=== PATIENT | female | born 1990 | race Caucasian/White ===

== ENCOUNTER 2017-09-19 10:55 | Outpatient (CLI) | payer OTHER ==
[2017-09-19] VITALS (10 sets, daily range): BP systolic 112–129; BP diastolic 55–68
[~2017-09-19] VITALS: Ht 165.1 cm; Wt 67.6 kg
--- NOTE | 2017-09-19 12:15 | History & Physical ---
History and Physical Date Seen by Provider: Sep 19, 2017 Time Seen by Provider: 12:11 This patient is a 26-year-old white female with a due date of December 05, 2017 putting her now at around 29 weeks gestation. She fell abruptly about 7 a.m. this morning landing on her buttocks and causing a mild split resulting in mild groin pain and noticeable sacral pain. She denies rupture membranes or bleeding. She started having some occasional contractions. She does feel baby moving. Allergies are none Medications are Pepcid and vitamins Medical social and surgical histories are per the antepartum record HEENT exam is normal Neck is supple no lymphadenopathy no thyromegaly Abdomen is gravid soft nontender nondistended Extreme show no clubbing or cyanosis. There is no Homans sign. Pelvic exam is deferred monitor shows a normal heart rate pattern with frequent accelerations and no decelerations. There are no uterine contractions and no or very minimal uterine irritability Assessment and plan patient concern for labor after a fall this morning we will monitor for 4 hours. If there are no significant contractions and we will reassure the patient and discharge her home. She does begin to contract and concern for placental abruption and labor or worse would arise and we would manage appropriately. labor Allergies and Home Medications Patient Home Medication List Home Medication List Reviewed: Yes SHERWIN TIJERINA MD Sep 19, 2017 12:15 pm
--- NOTE | 2017-09-19 12:17 | Discharge Instructions ---
Discharge Instructions Discharge Medications New, Converted or Re-Newed RX: Other Patient Instructions Patient Instructions: As directed Return to The Hospital For: As directed Activity & Diet Discharge Diet: No Restrictions Activity as Tolerated: Yes Orders-Post D/C & Referrals Return to clinic as scheduled for OB follow-up Return to clinic promptly for any signs symptoms or indications of rupture membranes or labor Continue her own home medications SHERWIN TIJERINA MD Sep 19, 2017 12:17 pm
[2017-09-19 12:35] LABS: BILIRUBIN,URINE NEGATIVE (NEGATIVE); CLARITY,URINE CLEAR; COLOR,URINE YELLOW; GLUCOSE, URINE (UA) 3+ (NEGATIVE); KETONES,URINE NEGATIVE (NEGATIVE); LEUKOCYTE ESTERASE ,URINE 2+ (NEGATIVE); NITRITE,URINE NEGATIVE (NEGATIVE); PH,URINE 6.5 (5-9); PROTEIN,URINE 1+ (NEGATIVE); UROBILINOGEN,URINE NORMAL (NORMAL)
[2017-09-19 12:53] LABS: BACTERIA,URINE LARGE /HPF; SQUAMOUS EPITHELIAL CELL,UR 25-50 /HPF
== END 2017-09-19 16:30 | disposition home or self-care (01) ==
LOC: WSo 10:55 → LDRP 10:55 → WSo 16:30
PROVIDERS: ATTEND Obstetrics & Gynecology
DX: Z91.81 History of falling (principal); Z3A.27 27 weeks gestation of pregnancy
CPT/HCPCS: 81000; 87088; 99213

== ENCOUNTER 2017-11-28 09:55 | Inpatient (IN) | payer OTHER ==
[~2017-11-28] VITALS: Ht 152.4 cm; Wt 69.4 kg
[2017-11-28] VITALS (61 sets, daily range): BP systolic 92–120; BP diastolic 51–69
[~2017-11-28 09:55] MED LIST: LACTATED RINGERS 1,000 ML IV ONE
[2017-11-28] MEDS ORDERED: SUFENTA 0.6MCG/ML BUPIVA 0.125 100 ML ONE (10:41)
[2017-11-28] MEDS ORDERED: D5 LR IV SOLUTION 1,000 ML IV ONE (10:52)
[2017-11-28] MEDS: D5 LR IV SOLUTION 1,000 ML IV SCH ×2 (10:56→18:43)
[2017-11-28 10:57] LABS: BASOPHILS % (AUTO) 0 % (0-10); EOSINOPHILS # (AUTO) 0.1 10^3/uL (0.0-0.3); EOSINOPHILS % (AUTO) 1 % (0-10); HEMATOCRIT 33 % (35-52); HEMOGLOBIN 10.4 G/DL (11.5-16.0); LYMPHOCYTES # (AUTO) 1.6 X 10^3 (1.0-4.0); LYMPHOCYTES % (AUTO) 18 % (12-44); MEAN CORPUSCULAR HEMOGLOBIN 24 PG (25-34); MEAN CORPUSCULAR HGB CONC 31 G/DL (32-36); MEAN CORPUSCULAR VOLUME 76 FL (80-99); MEAN PLATELET VOLUME 9.8 FL (7.4-10.4); MONOCYTES # (AUTO) 0.6 X 10^3 (0.0-1.0); MONOCYTES % (AUTO) 7 % (0-12); NEUTROPHILS # (AUTO) 6.8 X 10^3 (1.8-7.8); NEUTROPHILS % (AUTO) 75 % (42-75); PLATELET COUNT 285 10^3/uL (130-400); RED BLOOD COUNT 4.36 10^6/uL (4.35-5.85); RED CELL DISTRIBUTION WIDTH 16.3 % (10.0-14.5); WHITE BLOOD COUNT 9.1 10^3/uL (4.3-11.0)
[2017-11-28] MEDS ORDERED: BUPIVACAINE 0.25% 30 ML (SENSORCAINE) VIAL ONE (11:18)
[2017-11-28] MEDS ORDERED: fentaNYL INJECTION 100 MCG/2 ML AMP ONE (11:19)
[2017-11-28 11:21] LABS: BILIRUBIN,URINE NEGATIVE (NEGATIVE); CLARITY,URINE CLEAR; COLOR,URINE YELLOW; GLUCOSE, URINE (UA) NEGATIVE (NEGATIVE); KETONES,URINE NEGATIVE (NEGATIVE); LEUKOCYTE ESTERASE ,URINE 1+ (NEGATIVE); NITRITE,URINE NEGATIVE (NEGATIVE); PH,URINE 7 (5-9); PROTEIN,URINE 2+ (NEGATIVE); UROBILINOGEN,URINE 4 MG/DL (NORMAL)
[2017-11-28 11:33] LABS: BACTERIA,URINE NEGATIVE /HPF; SQUAMOUS EPITHELIAL CELL,UR 0-2 /HPF; WBC,URINE RARE /HPF
[2017-11-28] MEDS: EPIDURAL (SUFENTA 0.6MCG/ML BUPIVA 0.125%) 100 ML BAG EPI SCH ×2 (11:48→20:19)
[2017-11-28] MEDS ORDERED: LACTATED RINGERS 1,000 ML IV ONE (11:53)
[2017-11-28] MEDS ORDERED: NALOXONE 0.4 MG/ML 1 ML (NARCAN) VIAL IV PRN (12:00)
[2017-11-28] MEDS ORDERED: diphenhydrAMINE 50 MG/ML INJ (BENADRYL) IV PRN (12:00)
[2017-11-28] MEDS ORDERED: CATHETER FLUSH 10 ML SYR IV PRN (12:00)
[2017-11-28] MEDS ORDERED: OXYTOCIN/NORMAL SALINE 500 ML IV SCH ×2 (12:04→15:07)
[2017-11-28] MEDS ORDERED: OXYTOCIN/NORMAL SALINE 500 ML IV ONE (12:11)
[2017-11-28] MEDS ORDERED: PREN1TAB86 PO (13:21)
--- NOTE | 2017-11-28 15:07 | History & Physical ---
History and Physical Date Seen by Provider: Nov 28, 2017 Time Seen by Provider: 15:05 This patient is a 26-year-old white female with a due date of 1817 putting her at 39 weeks gestation. She requests induction of labor secondary to the aches and pains of . She was admitted with a favorable cervix and was GBS negative culture for labor induction. Patient denies ruptured membranes or bleeding. Allergies are none Medications are vitamins and Pepcid Medical social surgical obstetric family histories are present record HEENT exam is normal Neck supple no lymphadenopathy no thyromegaly Abdomen gravid soft nontender nondistended Extremities show no clubbing cyanosis. There is no Homans sign. Pelvic pelvic exam unless checking clinic shows cervix 1-2 cm dilated greater than 50 percent effaced 0 station soft and midplane given a Martin score of 8 Assessment and plan term at 39 weeks gestation with a favorable cervix admitted for induction of labor 39 week admitted for elective induction Allergies and Home Medications Allergies Coded Allergies: No Known Drug Allergies (Unverified , 09/19/17) Home Medications Vit W-Ca,Fe,FA(<1 mg) 1 Each Tablet, 1 EACH PO DAILY, (Reported) Patient Home Medication List Home Medication List Reviewed: Yes SHERWIN TIJERINA MD Nov 28, 2017 3:07 pm
[2017-11-28] MEDS ORDERED: TETANUS,DIPTH,PERTUSS P/F (BOOSTRIX) 0.5 ML VIAL IM ONE (15:15)
[2017-11-28] MEDS ORDERED: KETOROLAC 30 MG/ML VIAL IV SCH (15:15)
[2017-11-28] MEDS: ONDANSETRON 4 MG/2 ML (SDV) Z0FRAN IV PRN ×2 (17:15→20:03)
[2017-11-28] MEDS ORDERED: LIDOCAINE/EPI 2% 1:200,00 (XYLOCAINE) 10 ML VIAL ONE (23:22)
[2017-11-28] MEDS ORDERED: IBUP-1780 PO (23:37)
[2017-11-28] MEDS ORDERED: OXYC-471 PO (23:37)
[2017-11-28] MEDS ORDERED: DOCU100C37 PO (23:37)
--- NOTE | 2017-11-28 23:38 | Discharge Instructions ---
Discharge Instructions Discharge Medications New, Converted or Re-Newed RX: RX on Chart Patient Instructions Patient Instructions: As directed Return to The Hospital For: As directed Activity & Diet Discharge Diet: No Restrictions Activity as Tolerated: No Orders-Post D/C & Referrals Follow Up Appt: Call to make follow up appt. for patient in 4 weeks. Activity Per routine post vaginal delivery instructions. Diet as tolerated Patient may shower or tub bathe as desired. SHERWIN TIJERINA MD Nov 28, 2017 23:38
[2017-11-29] VITALS (14 sets, daily range): BP systolic 90–120; BP diastolic 49–78
--- NOTE | 2017-11-29 04:08 | OPERATIVE REPORT ---
DATE OF SERVICE: 11/29/2017 REPORT TITLE: Delivery note The patient delivered by term spontaneous vaginal delivery a viable female with Apgars of 8 and 9 at 1 and 5 minutes respectively, weight 7 pounds and 4 ounces and arterial cord blood gas of 7.18, and a time of 00:01. The patient delivered over an intact perineum under epidural analgesia, augmented with local lidocaine in the perineal body. There was a double nuchal cord that was easily released, the delivery was then completed. The infant was bulb suctioned on delivery of the head and again on completion of delivery. The umbilical cord was doubly clamped, the father cut the cord, the baby was passed to mom's abdomen. The cervix, vagina, rectum and perineum were examined and found intact. Sponge and needle counts were correct. Estimated blood loss was around 100 mL. The patient tolerated the delivery well and remained in the LDR for recovery. The baby remained with the mom. Job ID: [id number] DocumentID: [id number] Dictated Date: 11/29/2017 00:14:35 Taste Tester Date: 11/29/2017 04:08:03 Dictated By: SHERWIN TIJERINA MD MTDD
[2017-11-29] MEDS ORDERED: IBUPROFEN 800 MG (MOTRIN) TAB PO ONE (06:41)
[2017-11-29] MEDS: IBUPROFEN 800 MG (MOTRIN) TAB PO SCH ×3 (06:49→18:06)
[2017-11-29] MEDS: CATHETER FLUSH 10 ML SYR IV SCH ×2 (06:49→06:50)
[2017-11-29] MEDS: DOCUSATE SODIUM 100 MG (COLACE) CAP PO SCH ×3 (06:49→21:16)
--- NOTE | 2017-11-29 07:39 | Progress Note-Standard ---
Standard Progress Note Progress Notes/Assess & Plan Date Seen by Provider: Nov 29, 2017 Time Seen by Provider: 07:38 Progress/Assessment & Plan This patient is without complaint. She is ambulating, voiding, tolerating by mouth, has good pain control. Patient denies chest pain, denies shortness of breath, denies nausea vomiting, and denies headache. Vital Signs Date Time Temp Pulse Resp B/P (MAP) Pulse Ox O2 Delivery O2 Flow Rate FiO2 11/29/17 04:50 99.0 70 18 98/64 (75) 97 Room Air 11/29/17 02:30 98.7 82 18 98/61 (73) Room Air 11/29/17 02:00 98.9 75 18 104/57 (73) Room Air 11/29/17 01:30 82 18 103/49 (67) Room Air 11/29/17 01:15 99.3 69 18 98/50 (66) Room Air 11/29/17 01:00 67 18 90/51 (64) Room Air 11/29/17 00:45 69 18 106/58 (74) Room Air 11/29/17 00:30 98.0 72 18 111/54 (73) Room Air 11/29/17 00:15 97.8 93 18 119/66 (83) Room Air 11/29/17 00:00 136 18 120/78 (92) Room Air 11/28/17 23:45 69 18 111/65 (80) 100 Room Air 11/28/17 23:30 97.0 64 18 105/66 (79) 100 Room Air 11/28/17 23:15 55 18 106/59 (75) 100 Room Air 11/28/17 22:45 60 18 105/58 (74) 94 Room Air 11/28/17 22:30 64 18 109/54 (72) 95 Room Air 11/28/17 22:15 61 18 101/57 (72) 94 Room Air 11/28/17 22:00 97.8 70 18 118/69 (85) 96 Room Air 11/28/17 21:45 64 18 104/57 (73) 94 Room Air 11/28/17 21:30 62 18 102/59 (73) 94 Room Air 11/28/17 21:15 61 18 101/55 (70) 96 Room Air 11/28/17 21:00 62 18 105/57 (73) 95 Room Air 11/28/17 20:45 97.9 65 18 108/53 (71) 96 Room Air 11/28/17 20:30 63 18 102/58 (73) 97 Room Air 11/28/17 20:15 65 18 107/60 (76) 97 Room Air 11/28/17 20:00 65 18 110/54 (72) 98 Room Air 11/28/17 19:45 63 18 102/54 (70) 97 Room Air 11/28/17 19:30 63 18 109/64 (79) 98 Room Air 11/28/17 19:15 97.5 63 18 101/59 (73) 97 Room Air 11/28/17 19:00 61 18 108/63 (78) 98 Room Air 11/28/17 18:45 66 18 107/63 (78) 98 Room Air 11/28/17 18:30 64 18 102/57 (72) 98 Room Air 11/28/17 18:15 68 18 104/59 (74) 100 Room Air 11/28/17 18:00 98.4 53 18 92/51 (65) 99 Room Air 11/28/17 17:45 57 18 98/57 (71) 99 Room Air 11/28/17 17:30 57 18 104/58 (73) 97 Room Air 11/28/17 17:15 69 18 104/56 (72) 98 Room Air 11/28/17 17:00 66 18 103/56 (72) 98 Room Air 11/28/17 16:45 65 18 92/55 (67) 96 Room Air 11/28/17 16:30 58 18 96/52 (67) 98 Room Air 11/28/17 16:15 58 18 99/54 (69) 98 Room Air 11/28/17 16:00 98.3 62 18 97/54 (68) 97 Room Air 11/28/17 15:45 69 18 100/56 (71) 98 Room Air 11/28/17 15:30 74 18 104/54 (71) 98 Room Air 11/28/17 15:15 60 18 98/59 (72) 98 Room Air 11/28/17 15:00 99.0 64 18 102/63 (76) 98 Room Air 11/28/17 14:45 57 18 99/58 (72) 97 Room Air 11/28/17 14:30 97.7 60 18 101/59 (73) 95 Room Air 11/28/17 14:15 59 18 100/57 (71) 95 Room Air 11/28/17 14:00 56 18 101/56 (71) 96 Room Air 11/28/17 13:45 59 18 106/68 (81) 98 Room Air 11/28/17 13:30 60 18 102/56 (71) 98 Room Air 11/28/17 13:15 67 18 106/64 (78) 97 Room Air 11/28/17 13:00 98.2 64 18 94/57 (69) 97 Room Air 11/28/17 12:45 64 18 97/56 (70) 98 Room Air 11/28/17 12:36 55 18 103/55 (71) 95 Room Air 11/28/17 12:32 63 18 103/59 (74) 95 Room Air 11/28/17 12:27 62 18 97/54 (68) 95 Room Air 11/28/17 12:20 58 18 100/56 (71) 96 Room Air 11/28/17 12:15 65 18 101/56 (71) 96 Room Air 11/28/17 12:11 77 18 103/59 (74) 95 Room Air 11/28/17 12:03 66 18 104/59 (74) 95 Room Air 11/28/17 12:00 98.2 67 18 102/55 (71) 98 Room Air 11/28/17 11:57 70 18 104/59 (74) 98 Room Air 11/28/17 11:54 67 18 114/54 (74) 97 Room Air 11/28/17 11:51 76 18 96/55 (69) 97 Room Air 11/28/17 11:48 98 18 99/57 (71) 97 Room Air 11/28/17 11:42 83 18 109/61 (77) 97 Room Air 11/28/17 11:40 77 18 115/62 (79) 97 Room Air 11/28/17 11:10 80 18 120/63 (82) Room Air 11/28/17 10:40 92 18 103/62 (76) Room Air 11/28/17 10:10 97.3 104 18 103/68 (80) 98 Room Air I & O 11/29/17 07:00 Intake Total 2000 ml Output Total 0 ml Balance 2000 ml Vital signs are stable. Patient is afebrile. Fundus is firm below the umbilicus and nontender. Extremities show no clubbing or cyanosis. There is no Homans sign. Assessment and plan status post term spontaneous vaginal delivery doing well. Plan is routine convalescence care and consider discharge home tomorrow Final Diagnosis SHERWIN REEVES MD Nov 29, 2017 7:39 am
--- NOTE | 2017-11-29 08:14 | Anesthesia-Regional Post-Op ---
Regional Patient Condition Mental Status: Alert, Oriented x3 Circulation: Same as Pre-Op Headache: Absent Sensation: Full Recovery Motor Block: Absent Post Op Complications Complications None Follow Up Care/Instructions Patient Instructions None needed. Anesthesia/Patient Condition Patient is doing well, no complaints, stable vital signs, no apparent adverse anesthesia problems. No complications reported per nursing. D/C home per [facility] [place] Criteria: No DELLA JORDAN CRNA Nov 29, 2017 08:14
[2017-11-29] MEDS: oxyCODONE/APAP 5/325MG (PERCOCET 5) TABLET PO PRN (16:34)
[2017-11-30] MEDS: IBUPROFEN 800 MG (MOTRIN) TAB PO SCH ×2 (00:22→06:55)
[2017-11-30 00:30] VITALS: BP 121/78
[2017-11-30 06:54] VITALS: BP 106/69
[2017-11-30 08:20] VITALS: BP 107/69
[2017-11-30] MEDS: oxyCODONE/APAP 5/325MG (PERCOCET 5) TABLET PO PRN (08:20)
[2017-11-30] MEDS: DOCUSATE SODIUM 100 MG (COLACE) CAP PO SCH (08:20)
--- NOTE | 2017-11-30 08:20 | Progress Note-Standard ---
Standard Progress Note Progress Notes/Assess & Plan Date Seen by Provider: Nov 30, 2017 Time Seen by Provider: 08:18 Progress/Assessment & Plan This patient is without complaint. She is ambulating, voiding, tolerating by mouth, has good pain control. Patient denies chest pain, denies shortness of breath, denies nausea vomiting, and denies headache. Vital Signs Date Time Temp Pulse Resp B/P (MAP) Pulse Ox O2 Delivery O2 Flow Rate FiO2 11/29/17 04:50 99.0 70 18 98/64 (75) 97 Room Air 11/29/17 02:30 98.7 82 18 98/61 (73) Room Air 11/29/17 02:00 98.9 75 18 104/57 (73) Room Air 11/29/17 01:30 82 18 103/49 (67) Room Air 11/29/17 01:15 99.3 69 18 98/50 (66) Room Air 11/29/17 01:00 67 18 90/51 (64) Room Air 11/29/17 00:45 69 18 106/58 (74) Room Air 11/29/17 00:30 98.0 72 18 111/54 (73) Room Air 11/29/17 00:15 97.8 93 18 119/66 (83) Room Air 11/29/17 00:00 136 18 120/78 (92) Room Air 11/28/17 23:45 69 18 111/65 (80) 100 Room Air 11/28/17 23:30 97.0 64 18 105/66 (79) 100 Room Air 11/28/17 23:15 55 18 106/59 (75) 100 Room Air 11/28/17 22:45 60 18 105/58 (74) 94 Room Air 11/28/17 22:30 64 18 109/54 (72) 95 Room Air 11/28/17 22:15 61 18 101/57 (72) 94 Room Air 11/28/17 22:00 97.8 70 18 118/69 (85) 96 Room Air 11/28/17 21:45 64 18 104/57 (73) 94 Room Air 11/28/17 21:30 62 18 102/59 (73) 94 Room Air 11/28/17 21:15 61 18 101/55 (70) 96 Room Air 11/28/17 21:00 62 18 105/57 (73) 95 Room Air 11/28/17 20:45 97.9 65 18 108/53 (71) 96 Room Air 11/28/17 20:30 63 18 102/58 (73) 97 Room Air 11/28/17 20:15 65 18 107/60 (76) 97 Room Air 11/28/17 20:00 65 18 110/54 (72) 98 Room Air 11/28/17 19:45 63 18 102/54 (70) 97 Room Air 11/28/17 19:30 63 18 109/64 (79) 98 Room Air 11/28/17 19:15 97.5 63 18 101/59 (73) 97 Room Air 11/28/17 19:00 61 18 108/63 (78) 98 Room Air 11/28/17 18:45 66 18 107/63 (78) 98 Room Air 11/28/17 18:30 64 18 102/57 (72) 98 Room Air 11/28/17 18:15 68 18 104/59 (74) 100 Room Air 11/28/17 18:00 98.4 53 18 92/51 (65) 99 Room Air 11/28/17 17:45 57 18 98/57 (71) 99 Room Air 11/28/17 17:30 57 18 104/58 (73) 97 Room Air 11/28/17 17:15 69 18 104/56 (72) 98 Room Air 11/28/17 17:00 66 18 103/56 (72) 98 Room Air 11/28/17 16:45 65 18 92/55 (67) 96 Room Air 11/28/17 16:30 58 18 96/52 (67) 98 Room Air 11/28/17 16:15 58 18 99/54 (69) 98 Room Air 11/28/17 16:00 98.3 62 18 97/54 (68) 97 Room Air 11/28/17 15:45 69 18 100/56 (71) 98 Room Air 11/28/17 15:30 74 18 104/54 (71) 98 Room Air 11/28/17 15:15 60 18 98/59 (72) 98 Room Air 11/28/17 15:00 99.0 64 18 102/63 (76) 98 Room Air 11/28/17 14:45 57 18 99/58 (72) 97 Room Air 11/28/17 14:30 97.7 60 18 101/59 (73) 95 Room Air 11/28/17 14:15 59 18 100/57 (71) 95 Room Air 11/28/17 14:00 56 18 101/56 (71) 96 Room Air 11/28/17 13:45 59 18 106/68 (81) 98 Room Air 11/28/17 13:30 60 18 102/56 (71) 98 Room Air 11/28/17 13:15 67 18 106/64 (78) 97 Room Air 11/28/17 13:00 98.2 64 18 94/57 (69) 97 Room Air 11/28/17 12:45 64 18 97/56 (70) 98 Room Air 11/28/17 12:36 55 18 103/55 (71) 95 Room Air 11/28/17 12:32 63 18 103/59 (74) 95 Room Air 11/28/17 12:27 62 18 97/54 (68) 95 Room Air 11/28/17 12:20 58 18 100/56 (71) 96 Room Air 11/28/17 12:15 65 18 101/56 (71) 96 Room Air 11/28/17 12:11 77 18 103/59 (74) 95 Room Air 11/28/17 12:03 66 18 104/59 (74) 95 Room Air 11/28/17 12:00 98.2 67 18 102/55 (71) 98 Room Air 11/28/17 11:57 70 18 104/59 (74) 98 Room Air 11/28/17 11:54 67 18 114/54 (74) 97 Room Air 11/28/17 11:51 76 18 96/55 (69) 97 Room Air 11/28/17 11:48 98 18 99/57 (71) 97 Room Air 11/28/17 11:42 83 18 109/61 (77) 97 Room Air 11/28/17 11:40 77 18 115/62 (79) 97 Room Air 11/28/17 11:10 80 18 120/63 (82) Room Air 11/28/17 10:40 92 18 103/62 (76) Room Air 11/28/17 10:10 97.3 104 18 103/68 (80) 98 Room Air I & O 11/29/17 07:00 Intake Total 2000 ml Output Total 0 ml Balance 2000 ml Vital signs are stable. Patient is afebrile. Fundus is firm below the umbilicus and nontender. Extremities show no clubbing or cyanosis. There is no Homans sign. Assessment and plan status post term spontaneous vaginal delivery doing well. Plan is routine convalescence care and consider discharge home tomorrow November 30, 2017 Patient without complaint except for perineal pain. She is ambulating, voiding , tolerating by mouth well, has good pain control. Patient denies chest pain, denies shortness of breath, denies nausea vomiting, and denies headache. Patient is requesting discharge home. Vital Signs Date Time Temp Pulse Resp B/P (MAP) Pulse Ox O2 Delivery O2 Flow Rate FiO2 11/30/17 06:54 99.0 64 16 106/69 (81) 98 11/30/17 00:30 97.7 64 16 121/78 (92) 99 Room Air 11/29/17 20:35 97.8 68 16 100/62 (75) 97 Room Air 11/29/17 16:32 64 16 93/64 (74) 97 Room Air 11/29/17 12:45 98.6 63 16 107/71 (83) 97 Room Air Vital signs are stable. Patient afebrile. Fundus is firm below the umbilicus and nontender. Extremities show no clubbing cyanosis. There is no Homans sign. Perineum is slightly edematous but there is no induration and no erythema. Assessment and plan day number 2 status post term spontaneous vaginal delivery doing well. Patient has likely normal perineal discomfort after vaginal delivery. She had been reassured and plans for follow-up in clinic with discharge home today. Final Diagnosis TSVD SHERWIN TIJERINA MD Nov 30, 2017 8:20 am
== END 2017-11-30 11:40 | disposition home or self-care (01) | DRG 775 ==
LOC: LDRP 09:55
PROVIDERS: ADMIT Obstetrics & Gynecology; ATTEND Obstetrics & Gynecology
PROC: 3E033VJ Introduction of Other Hormone into Peripheral Vein, Percutaneous Approach (ICD-10-PCS; 2017-11-28)
PROC: 10E0XZZ Delivery of Products of Conception, External Approach (ICD-10-PCS; principal; 2017-11-29)
DX: O69.81X0 Labor and delivery complicated by cord around neck, without compression, not applicable or unspecified (principal); Z37.0 Single live birth; Z3A.39 39 weeks gestation of pregnancy
CPT/HCPCS: 36415; 81000; 85025; 86850; 86900; 86901; 88307